=== PATIENT | female | born 1990 | race Asian ===

== ENCOUNTER 2021-12-24 10:50 | Inpatient (IN) | payer BC ==
[2021-12-24] MEDS ORDERED: OXYTOCIN 30 UNITS in 0.9% NS 30 UNIT/500 ML INFUS.BAG IVPB ONE (11:33)
[2021-12-24] MEDS ORDERED: CITRIC ACID/SODIUM CITRATE 30 ML UNIT-DOSE CUP PO ONE (11:34)
[2021-12-24] MEDS ORDERED: ePHEDrine SULFATE 50 MG/1 ML AMPULE ONE (11:50)
[2021-12-24] MEDS ORDERED: ceFAZolin SODIUM 1 GM VIAL ONE (11:50)
[2021-12-24] MEDS ORDERED: ONDANSETRON 4 MG/2 ML VIAL ONE ×2 (11:50→12:54)
[2021-12-24] MEDS ORDERED: morphine SULFATE/PF 1 MG/2 ML (2cc Syringe - QUVA) ONE (11:50)
[2021-12-24] MEDS ORDERED: SODIUM CHLORIDE 0.9% P/F 10 ML VIAL IJ ONE (11:50)
[2021-12-24] MEDS ORDERED: KETOROLAC TROMETHAMINE 30 MG/1 ML VIAL ONE ×2 (11:50→12:54)
[2021-12-24 11:53] VITALS: BMI 19.4
[2021-12-24] MEDS ORDERED: ACETAMINOPHEN 325 MG TABLET (FP) PO PRN (13:22)
[2021-12-24] MEDS ORDERED: METHYLERGONOVINE MALEATE 0.2 MG/1 ML AMP IM PRN (13:22)
[2021-12-24] MEDS ORDERED: IBUPROFEN 800 MG/8 ML IJ IVPB PRN (13:23)
[2021-12-24 13:50] LABS: CORD HCO3 21.4 mmHg (20-29); CORD PCO2 47.4 mmHg (30-78); CORD pH 7.273 (7.14-7.44)
[2021-12-24 13:56] LABS: CORD BASE EXCESS -3.2 mmol/L (0-2); CORD HCO3 22.7 mmHg (20-29); CORD PCO2 43.4 mmHg (30-78); CORD pH 7.336 (7.14-7.44)
[2021-12-24] MEDS ORDERED: OXYTOCIN 20 UNITS in 0.9% NS 20 UNIT/1,000 ML INFUS.BAG IV ONE (14:38)
[2021-12-24] MEDS: CEFAZOLIN 1 GM in DEXTROSE 5%-WATER - 50 ML IVPB SCH (17:44)
[2021-12-24] MEDS: OXYTOCIN 20 UNITS in 0.9% NS 20 UNIT/1,000 ML INFUS.BAG IV SCH (22:46)
[2021-12-24] MEDS: IBUPROFEN 600 MG TABLET (FP) PO PRN (22:51)
[2021-12-24] MEDS: SIMETHICONE 80 MG TAB.CHEW (FP) PO PRN (22:52)
[2021-12-25] MEDS: CEFAZOLIN 1 GM in DEXTROSE 5%-WATER - 50 ML IVPB SCH ×2 (01:07→10:04)
[2021-12-25] MEDS ORDERED: oxyCODONE HCL 5 MG TABLET PO PRN ×2 (01:22)
[2021-12-25] MEDS: IBUPROFEN 600 MG TABLET (FP) PO PRN ×2 (05:52→17:30)
[2021-12-25] MEDS: SIMETHICONE 80 MG TAB.CHEW (FP) PO PRN (05:52)
[2021-12-25 09:01] LABS: BASO % 0.4 % (0-2.0); EOS % 1.2 % (0-4.5); HEMATOCRIT 34.7 % (32.4-45.2); HEMOGLOBIN 11.8 GM/dL (10.7-15.3); LYMPH % 6.7 % (8-40); MCH 30.8 pg (25.7-33.7); MEAN CELL VOLUME 90.6 fl (80-96); MEAN PLT VOLUME 7.1 fl (7.5-11.1); MONO % 5.7 % (3.8-10.2); PLATELET COUNT 336 10^3/uL (134-434); RBC 3.83 M/mm3 (3.60-5.2); RDW 12.9 % (11.6-15.6); WHITE BLOOD COUNT 17.7 K/mm3 (4.0-10.0)
[2021-12-25] MEDS: ENOXAPARIN NA (PORCINE) 40 MG/0.4 ML DISP.SYRIN SQ SCH (10:04)
[2021-12-25] MEDS: OXYTOCIN 20 UNITS in 0.9% NS 20 UNIT/1,000 ML INFUS.BAG IV SCH (10:07)
[2021-12-25] MEDS ORDERED: BISACODYL 10 MG SUPP.RECT RC PRN (13:22)
[2021-12-26] MEDS: IBUPROFEN 600 MG TABLET (FP) PO PRN ×2 (04:56→20:49)
[2021-12-26] MEDS: ENOXAPARIN NA (PORCINE) 40 MG/0.4 ML DISP.SYRIN SQ SCH (09:52)
[2021-12-26 11:48] VITALS: RESP 18
[2021-12-26] MEDS: OXYTOCIN 20 UNITS in 0.9% NS 20 UNIT/1,000 ML INFUS.BAG IV SCH (19:15)
[2021-12-26] MEDS: ELECTROLYTE-148 SOLN 1,000 ML IV SCH (19:15)
[2021-12-26 21:59] VITALS: TEMP 98.4
[2021-12-27 07:32] LABS: BASO % 0.4 % (0-2.0); EOS % 3.7 % (0-4.5); HEMATOCRIT 31.7 % (32.4-45.2); HEMOGLOBIN 10.9 GM/dL (10.7-15.3); LYMPH % 17.2 % (8-40); MCH 31.1 pg (25.7-33.7); MCHC 34.5 g/dl (32.0-36.0); MEAN CELL VOLUME 90.2 fl (80-96); MONO % 7.8 % (3.8-10.2); NEUT % 70.9 % (42.8-82.8); PLATELET COUNT 331 10^3/uL (134-434); RBC 3.51 M/mm3 (3.60-5.2); RDW 12.6 % (11.6-15.6); WHITE BLOOD COUNT 10.7 K/mm3 (4.0-10.0)
[2021-12-27] MEDS: ENOXAPARIN NA (PORCINE) 40 MG/0.4 ML DISP.SYRIN SQ SCH (09:33)
[2021-12-27 10:29] VITALS: BP 95/60; PULSE 90
== END 2021-12-27 14:45 | disposition home or self-care (01) | DRG 788 ==
LOC: JLDR 10:50 → J3W 15:30
PROVIDERS: ADMIT Obstetrics & Gynecology; ATTEND Obstetrics & Gynecology
PROC: 10D00Z1 Extraction of Products of Conception, Low, Open Approach (ICD-10-PCS; principal; 2021-12-24)
DX: O48.0 Post-term pregnancy (principal); O32.2XX0 Maternal care for transverse and oblique lie, not applicable or unspecified; Z3A.40 40 weeks gestation of pregnancy; Z37.0 Single live birth
CPT/HCPCS: 36415; 36600; 82803; 85025; 88307-TC